=== PATIENT | female | born 1960 | race Caucasian/White ===

== ENCOUNTER → 2017-03-08 | Outpatient (CLI) | payer OTHER ==
[2014-02-12 15:26] VITALS: BP 124/72
[~2017-03-08] MED LIST: DULO20CA50 PO; levothyroxine
--- NOTE | 2017-03-08 11:18 | RAD ---
DATE: March 08, 2017 EXAM: MAMMO SHANTEL SCREENING BILATERAL HISTORY: Screening study. COMPARISON: March 07, 2015. This study was interpreted with the benefit of Computerized Aided Detection (CAD). 2-D digital mammographic views of both breasts were performed in the CC and MLO projections. 3-D digital tomosynthesis of both breasts were performed in the CC and MLO projections and reviewed on a computer workstation. FINDINGS: The breast parenchyma is heterogeneously dense. There are no dominant suspicious masses, suspicious microcalcifications or evidence of architectural distortion. IMPRESSION: No mammographic indicators for malignancy. BI-RADS CATEGORY: 1 NEGATIVE RECOMMENDED FOLLOW-UP: 12M 12 MONTH FOLLOW-UP PQRS compliance statement: Patient information was entered into a reminder system with a target due date March 09, 2018 for the next mammogram. Mammography is a sensitive method for finding small breast cancers, but it does not detect them all and is not a substitute for careful clinical examination. A negative mammogram does not negate a clinically suspicious finding and should not result in delay in biopsying a clinically suspicious abnormality. "Our facility is accredited by the [employer] Mammography [employer]." The patient's breast density may affect the ability of mammography to detect breast cancer. There are 4 categories of breast density, A, B, C and D. Breast density A means that most of the breast tissue is replaced with adipose tissue and therefore is not dense. Breast density B means that the breast tissue is mildly dense and scattered. Breast density C means that the breast tissue is heterogeneously dense. Breast density D means that the breast tissue is very dense. Breast densities especially C and D may decrease the sensitivity of mammography to detect breast cancer. Therefore, the patient may benefit from 3-D breast mammography (3D breast tomography) as a part of their screening mammogram. Insurance may or may not pay for this additional imaging. The patient's breast density based on today's mammogram is category C.
== END | disposition home or self-care (01) ==
LOC: MAMMO 08:12
PROVIDERS: ATTEND Nurse Practitioner Family
DX: Z12.31 Encounter for screening mammogram for malignant neoplasm of breast (principal)
CPT/HCPCS: 77063; 77067

== ENCOUNTER → 2020-04-28 | Outpatient (CLI) | payer OTHER ==
[2014-02-12 15:26] VITALS: BP 124/72
--- NOTE | 2020-04-29 09:48 | RAD ---
DATE: 04/28/2020 10:10 AM EXAM: MAMMO SHANTEL SCREENING BILATERAL HISTORY: Screening COMPARISON: 03/08/2017, 03/07/2015 Bilateral CC and MLO views of the breasts were performed. Bilateral breast tomosynthesis was performed in CC and MLO projections. This study was interpreted with the benefit of Computerized Aided Detection (CAD). FINDINGS: Breast Density: HETERO The breast parenchyma Is heterogeneously dense, which could reduce sensitivity of mammography. Breast parenchyma level C No suspicious masses, microcalcifications or architectural distortion is present to suggest malignancy in either breast. The visualized axillae are unremarkable. IMPRESSION: No mammographic evidence of malignancy. BI-RADS CATEGORY: 1 NEGATIVE RECOMMENDED FOLLOW-UP: 12M 12 MONTH FOLLOW-UP Annual screening mammography is recommended, unless clinically indicated sooner based on symptoms or change in physical exam. PQRS compliance statement: Patient information was entered into a reminder system with a target due date for the next mammogram. Mammography is a sensitive method for finding small breast cancers, but it does not detect them all and is not a substitute for careful clinical examination. A negative mammogram does not negate a clinically suspicious finding and should not result in delay in biopsying a clinically suspicious abnormality. "Our facility is accredited by the [employer] Mammography [employer]."
== END ==
LOC: MAMMO 10:02
PROVIDERS: ATTEND Physician Assistant Medical
DX: Z12.31 Encounter for screening mammogram for malignant neoplasm of breast (principal)
CPT/HCPCS: 77063; 77067

== ENCOUNTER → 2020-05-07 | Outpatient (CLI) | payer OTHER ==
[2014-02-12 15:26] VITALS: BP 124/72
--- NOTE | 2020-05-07 12:22 | RAD ---
Examination: CT of the abdomen pelvis without contrast HISTORY: History of hematuria COMPARISON: None available TECHNIQUE: Axial CT images of the abdomen pelvis were performed without contrast. Coronal and sagitta l reformats are performed Exposure: One or more of the following individualized dose reduction techniques were utilized for thi s examination: 1. Automated exposure control 2. Adjustment of the mA and/or kV according to patient size 3. Use of iterative reconstruction technique FINDINGS: The bibasilar lungs are clear. No evidence of free air identified in the abdomen. The evaluation of t he solid organs is limited due to lack of IV contrast. The evaluation of bowel is limited due to lack of oral contrast. The visualized noncontrasted liver, spleen, adrenals grossly appears unremarkable. Limited images identified with the stomach is mildly distended with visualized pancreas grossly appe ars unremarkable. The small bowel is nondilated. Appendix is normal. Feces and gas noted in the colon . Small intrarenal collecting system calculi identified in the left kidney with the largest measuring 7 mm. No evidence of hydronephrosis. The urinary bladder is mildly distended. Moderate degenerative changes lumbar spine. IMPRESSION: 1. Small intrarenal collecting system calculi identified in the left kidney with largest measuring 7 mm. No evidence of hydronephrosis. 2. Cholecystectomy changes. Electronically signed by: Omar Qureshi MD (05/07/2020 12:20 PM) [id number]
== END ==
LOC: CT 10:23
PROVIDERS: ATTEND Nurse Practitioner Family
DX: R31.9 Hematuria, unspecified (principal); M47.816 Spondylosis without myelopathy or radiculopathy, lumbar region; Z90.49 Acquired absence of other specified parts of digestive tract
CPT/HCPCS: 74176